=== PATIENT | male | born 1940 | race Two or more races ===

== ENCOUNTER 2018-03-31 11:51 | Outpatient (CLI) | payer OTHER | END 2018-03-31 12:33 | disposition home or self-care (01) | LOC: MRI 11:51 | DX: M43.12 Spondylolisthesis, cervical region (principal) | CPT/HCPCS: 72141 ==

== ENCOUNTER 2019-09-05 10:35 | Outpatient (CLI) | payer OTHER | END 2019-09-05 16:12 | disposition home or self-care (01) | LOC: MRI 10:35 | DX: G30.1 Alzheimer's disease with late onset (principal) | CPT/HCPCS: 70551 ==

== ENCOUNTER → 2022-08-19 | Outpatient (CLI) | payer OTHER | END | disposition home or self-care (01) | LOC: NUCLEAR 13:00 | PROVIDERS: ATTEND Psychiatry & Neurology Neurology | DX: G30.8 Other Alzheimer's disease (principal) | CPT/HCPCS: 78803; A9557 ==